=== PATIENT | female | born 1930 | race Hispanic/Latino ===

== ENCOUNTER 2016-08-17 10:51 | Emergency (ER) | payer MEDICARE ==
[2016-08-17 12:40] VITALS: BP 151/82
--- NOTE | 2016-08-17 13:33 | XRay Report ---
Left elbow 3 views: History injury. Findings: No bony or articular abnormality. No fracture or dislocation . No joint effusion. Generalized demineralization. Impression: No evidence of acute fracture.
--- NOTE | 2016-08-17 18:30 | Emergency Department Report ---
Entered by NINA FRANCIS, acting as scribe for STACIA TUTTLE PA. Upper Extremity - HPI Stated Complaint: FALL Time Seen by Provider: 08/17/16 15:13 Upper Extremity: Left Elbow Occurred When: 1 Day (last night at 11 pm) Mechanism: Fall Severity: mild (pt rates pain 4 out of 10) Symptoms: Yes Swelling (left arm), Yes Bruising/Ecchymosis (left arm), Yes Laceration or Abrasion (2 5m ), No Deformity, No Limited Range of Movement, No Numbness, No Weakness ED Review of Systems ROS: Stated complaint: FALL Other details as noted in HPI Patient complaining of slip and fall last night. Denies loss of consciousness, head neck or back pain. Patient states she came to the ER just to make sure elbow wasn't broken. Constitutional: no symptoms reported Eyes: as per HPI ENT: as per HPI Respiratory: no symptoms reported Cardiovascular: denies: chest pain, palpitations, dyspnea on exertion, orthopnea , edema, syncope Gastrointestinal: denies: nausea, vomiting Musculoskeletal: joint swelling, arthralgia. denies: back pain Skin: lesions, other (abrasions left elbow) Neurological: denies: headache, weakness, numbness, paresthesias, confusion, abnormal gait, vertigo ED Past Medical Hx - Past Medical History Previous Medical History?: Yes Additional medical history: Neuropathy - Surgical History Past Surgical History?: No - Social History Smoking Status: Never Smoker Substance Use Type: Alcohol - Medications Home Medications: Home Medications Medication Instructions Recorded Confirmed Last Taken Type Ascorbate Calcium [Vitamin C] 500 mg PO DAILY 11/23/13 11/23/13 11/23/13 History Aspirin EC [Aspirin Enteric Coated 81 mg PO QPM 11/23/13 11/23/13 11/22/13 History TAB] Calcium Carbonate [ Calcium 1,000 mg PO DAILY 11/23/13 11/23/13 11/23/13 History Elemental 600 mg] Cholecalciferol (Vitamin D3) 1,000 unit PO DAILY 11/23/13 11/23/13 11/23/13 History [Vitamin D] Denosumab [Prolia] 60 mg SQ [id number] 11/23/13 11/23/13 11/23/13 History Fluconazole [Fluconazole] 200 mg PO DAILY 11/23/13 11/23/13 11/22/13 History Multivitamin [Multi-Vitamin Daily] 1 tab PO DAILY 11/23/13 11/23/13 11/23/13 History Vitamin B Complex [Natural B-100] 1 mg pe PO DAILY 11/23/13 11/23/13 11/23/13 History Upper Extremity Exam - Exam General: Vital signs noted. No distress. Alert and acting appropriately. Isolated injury Head and Torso: No HEENT Abnormality, No Neck Tenderness, No Chest/Lungs Abnormality, No Abdominal Tenderness, No Back Tenderness Shoulder Exam: Yes Normal Range of Motion in Shoulder, No Shoulder Tenderness, No Clavicle Tenderness, No Shoulder Deformity, No AC Joint Tenderness Arm Exam: No Arm/Humerus Tenderness, No Arm Deformity Elbow: Yes Elbow Tenderness, Yes Normal Range of Motion in Elbow, No Elbow Deformity Forearm: Yes Forearm Tenderness, No Forearm Deformity, No Pain with Pronation, No Pain with Supination Wrist: Yes Normal ROM in Wrist, No Wrist Tenderness, No Wrist Deformity, No Snuffbox Tenderness, No Pain with Axial Thumb Compression Hand: Yes Normal ROM in Digit(s), No Hand Tenderness, No Hand Deformity, No Digit Tenderness, No Digit(s) Deformity, No Tendon Dysfunction CMS Exam: Yes Broken Skin (2 hemostatic elbow abrasions. clean and well cared for), Yes Normal Distal Pulses, Yes Normal Capillary Refill, Yes Normal Distal Sensation ED Course Vital Signs 08/17/16 12:36 Temperature 98.0 F Pulse Rate 73 Respiratory 20 Rate Blood Pressure 151/82 O2 Sat by Pulse 96 Oximetry Critical care attestation.: If time is entered above; I have spent that time in minutes in the direct care of this critically ill patient, excluding procedure time. ED Disposition Clinical Impression: Contusion of elbow, left Disposition: DISCHARGED TO HOME OR SELFCARE Is pt being admited?: No Condition: Stable Instructions: Laceration (ED), Contusion in Adults (ED) Referrals: JAYA THOMPSON MD [Primary Care Provider] - 3-5 Days This documentation as recorded by the PENNY dave JASMINE,accurately reflects the service I personally performed and the decisions made by me,STACIA TUTTLE PA.
== END 2016-08-17 16:38 | disposition home or self-care (01) ==
LOC: ED 10:51
DX: S50.02XA Contusion of left elbow, initial encounter (principal); Z79.82 Long term (current) use of aspirin; W18.39XA Other fall on same level, initial encounter; Y93.89 Activity, other specified; Y99.8 Other external cause status; Y92.89 Other specified places as the place of occurrence of the external cause
CPT/HCPCS: 99283

== ENCOUNTER 2016-09-09 11:13 | Outpatient (CLI) | payer MEDICARE ==
--- NOTE | 2016-09-09 15:43 | Mammography Report ---
BILATERAL DIGITAL SCREENING MAMMOGRAM with CAD: 09/09/16 11:13:00 CLINICAL: Routine screening. COMPARISON:05/03/15 FINDINGS: The breasts are heterogeneously dense, which may obscure small masses. No mass, architectural distortion or suspicious calcifications. IMPRESSION: No mammographic evidence of malignancy. BI-RADS CATEGORY: 1 - - Negative RECOMMENDATION: Routine mammographic screening in one year. COMMENT: Patient follow-up letters are generated by our [employer] application.
== END 2016-09-09 11:14 | disposition home or self-care (01) ==
LOC: SPVWC 11:13
PROVIDERS: ATTEND Internal Medicine
DX: Z12.31 Encounter for screening mammogram for malignant neoplasm of breast (principal)
CPT/HCPCS: 77067; G0202

== ENCOUNTER 2018-10-25 14:40 | Outpatient (CLI) | payer MEDICARE ==
--- NOTE | 2018-10-25 15:40 | XRay Report ---
XRAY RIBS THREE VIEWS: 10/25/18 14:40:00 CLINICAL: Rib pain FINDINGS: PA and bilateral oblique rib views were obtained. Mildly displaced fractures of the left ribs 4 and 5 are identified only on the left oblique view. No callus. Extensive bilateral rib cartilage calcifications. No other fractures. The lungs are normally expanded and clear. No pneumothorax. Calcified hilar granulomata and calcified mediastinal lymph nodes. Normal heart and pulmonary vessels. Atherosclerotic calcification of the aorta. A moderate size hiatal hernia. Degenerative change in the spine. IMPRESSION: 1. Acute mildly displaced traumatic fractures of left ribs 4 and 5. 2. No pneumothorax. 3. Old granulomatous disease.
--- NOTE | 2018-10-25 15:41 | XRay Report ---
XRAY LEFT KNEE 3 VIEWS: 10/25/18 14:40:00 CLINICAL: Left knee pain. FINDINGS: Moderate osteopenia. No fracture or dislocation. Osteoarthritis of the lateral joint with near-complete loss of the joint space. Minimal osteophytes. Mild patellofemoral joint osteoarthritis. No joint effusion. Normal soft tissues. 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
== END 2018-10-25 14:41 | disposition home or self-care (01) ==
LOC: SPVIMAG 14:40
PROVIDERS: ATTEND Internal Medicine
DX: M17.12 Unilateral primary osteoarthritis, left knee (principal); I70.0 Atherosclerosis of aorta; L92.9 Granulomatous disorder of the skin and subcutaneous tissue, unspecified; K44.9 Diaphragmatic hernia without obstruction or gangrene; M47.814 Spondylosis without myelopathy or radiculopathy, thoracic region